=== PATIENT | male | born 1960 | race African-American/Black ===

== ENCOUNTER 2016-08-18 17:20 | Emergency (ER) | payer OTHER ==
[~2016-08-18] VITALS: Ht 185.4 cm; Wt 113.5 kg
[2016-08-18] MEDS ORDERED: IBUPROFEN 800 MG TABLET PO ONE (18:15)
[2016-08-18 19:20] VITALS: BP 142/81
== END 2016-08-18 19:25 | disposition home or self-care (01) ==
LOC: EMS 17:21
DX: S93.401A Sprain of unspecified ligament of right ankle, initial encounter (principal); X58.XXXA Exposure to other specified factors, initial encounter; Y93.89 Activity, other specified; Y92.89 Other specified places as the place of occurrence of the external cause; Y99.8 Other external cause status
CPT/HCPCS: 29515; 99284